=== PATIENT | male | born 1955 | race Caucasian/White ===

== ENCOUNTER → 2016-11-10 | Outpatient (CLI) | payer MEDICARE, OTHER | LOC: NM 09:30 | DX: I25.10 Atherosclerotic heart disease of native coronary artery without angina pectoris (principal); I50.22 Chronic systolic (congestive) heart failure; R06.02 Shortness of breath; I20.9 Angina pectoris, unspecified; I08.1 Rheumatic disorders of both mitral and tricuspid valves; I51.9 Heart disease, unspecified; Z95.0 Presence of cardiac pacemaker; I70.0 Atherosclerosis of aorta | CPT/HCPCS: ECHO; 78452; 93306; A9502; J2785 ==

== ENCOUNTER 2016-12-25 12:18 | Emergency (ER) | payer MEDICARE, OTHER ==
[2016-12-25 13:58] LABS: RED BLOOD COUNT 4.77 M/UL (4.20-5.50); WHITE BLOOD COUNT 11.3 K/UL (4.5-11.0)
== END 2016-12-25 15:34 | disposition home or self-care (01) ==
LOC: ER1 12:18
PROVIDERS: Physician Assistant
DX: S29.011A Strain of muscle and tendon of front wall of thorax, initial encounter (principal); I25.2 Old myocardial infarction; I25.10 Atherosclerotic heart disease of native coronary artery without angina pectoris; I12.9 Hypertensive chronic kidney disease with stage 1 through stage 4 chronic kidney disease, or unspecified chronic kidney disease; N18.9 Chronic kidney disease, unspecified; H54.8 Legal blindness, as defined in USA; Z88.5 Allergy status to narcotic agent; Z88.6 Allergy status to analgesic agent; X58.XXXA Exposure to other specified factors, initial encounter; Y93.89 Activity, other specified; Y92.007 Garden or yard of unspecified non-institutional (private) residence as the place of occurrence of the external cause; Y99.8 Other external cause status
CPT/HCPCS: 36415; 71101; 80053; 82550; 82553; 83874; 84484; 85025; 93005; 96374; 96375; 99284; J2270; J2405

== ENCOUNTER → 2021-07-14 | Outpatient (CLI) | payer MEDICARE, OTHER ==
[~2021-07-14] MED LIST: ASPIR-LOW81 MG PO; CLOPIDOGREL75 MG PO; ISOSORBIDE MONO30 MG PO; LOPRESSOR 50 MG50 MG PO; NITROGLYCERIN0.4 MG SL; OMEPRAZOLE20 MG PO; RANITIDINE HCL300 MG PO; SIMVASTATIN20 MG PO; TIZANIDINE HCL4 MG PO
== END ==
LOC: HEART 5 08:52
DX: I25.5 Ischemic cardiomyopathy (principal); R06.02 Shortness of breath; I08.3 Combined rheumatic disorders of mitral, aortic and tricuspid valves
CPT/HCPCS: 93306

== ENCOUNTER → 2022-01-11 | Emergency (ER) | payer MEDICARE, OTHER | END | disposition left against medical advice (07) | LOC: ER1 10:23 | DX: Z53.21 Procedure and treatment not carried out due to patient leaving prior to being seen by health care provider (principal) | CPT/HCPCS: 71045; 93005 ==

== ENCOUNTER → 2022-04-12 | Outpatient (CLI) | payer MEDICARE, OTHER ==
[~2022-04-12] MED LIST changes: +AMLODIPINE BESYL5 MG PO; +ASPIRIN CHEWABL81 MG PO; +ATORVASTATIN CA20 MG PO; +BUMETANIDE0.5 MG PO; +COLCRYS0.6 MG PO; +ELIQUIS 5 MG TAB5 MG PO; +ENTRESTO 24 MG1 EACH PO; +HYDRALAZINE HCL50 MG PO; -LOPRESSOR 50 MG50 MG PO; +LOPRESSOR100 MG PO; +METOPROLOL SUC100 MG PO; +MIRTAZAPINE15 MG PO; +POTASSIUM CHLO20 ME1 PO; +PROVENTIL HFA6.7 GM INH; -SIMVASTATIN20 MG PO; +ZOCOR40 MG PO
[2022-04-12 11:24] LABS: HEMOGLOBIN 12.9 gm/dl (14.0-17.5); RED BLOOD COUNT 4.46 M/UL (4.20-5.50); WHITE BLOOD COUNT 7.1 K/UL (4.5-11.0)
== END ==
LOC: ECHO 09:45
PROVIDERS: Internal Medicine Cardiovascular Disease
DX: T82.110A Breakdown (mechanical) of cardiac electrode, initial encounter (principal); I50.22 Chronic systolic (congestive) heart failure; I25.5 Ischemic cardiomyopathy; I47.2 Ventricular tachycardia
CPT/HCPCS: ECHO; 36415; 71046; 80048; 85025; 93306

== ENCOUNTER → 2022-04-14 | Outpatient (CLI) | payer MEDICARE, OTHER ==
[~2022-04-14] VITALS: Ht 182.9 cm; Wt 89.8 kg
== END ==
LOC: CATH 06:31
DX: T82.110A Breakdown (mechanical) of cardiac electrode, initial encounter (principal); I11.0 Hypertensive heart disease with heart failure; I50.22 Chronic systolic (congestive) heart failure; I25.5 Ischemic cardiomyopathy; I47.2 Ventricular tachycardia; I25.10 Atherosclerotic heart disease of native coronary artery without angina pectoris; Z98.61 Coronary angioplasty status; I73.9 Peripheral vascular disease, unspecified; I25.2 Old myocardial infarction; I48.0 Paroxysmal atrial fibrillation; F17.210 Nicotine dependence, cigarettes, uncomplicated; E78.5 Hyperlipidemia, unspecified; Z88.5 Allergy status to narcotic agent; Z88.8 Allergy status to other drugs, medicaments and biological substances; Z79.01 Long term (current) use of anticoagulants; Z79.82 Long term (current) use of aspirin; Z79.02 Long term (current) use of antithrombotics/antiplatelets
CPT/HCPCS: 93641; 93642; 99152; 99153; J1644; J2250; J3010; J3370; J7040